=== PATIENT | male | born 1975 | race Caucasian/White ===

== ENCOUNTER 2024-07-23 08:12 | Emergency (ER) | payer BC, SELFPAY ==
[2024-07-23 08:15] VITALS: BP 131/89
[2024-07-23 09:09] VITALS: BMI 36.8
[2024-07-23 09:29] LABS: % Basophils 0.5 % (0-2); % Eosinophils 2.3 % (0-6); % Immature Granulocytes 0.3 % (0-0.5); % Lymphocytes 12.6 % (20.5-51.1); % Monocytes 10.4 % (1.7-9.3); % Neutrophils 73.9 % (42.2-75.2); Absolute Basophils 0.1 10^3/uL (0-0.2); Absolute Eosinophils 0.2 10^3/uL (0-0.7); Absolute Lymphocytes 1.2 10^3/uL (1.2-3.4); Absolute Neutrophils 6.7 10^3/uL (1.4-6.5); Hematocrit 48.4 % (39.0-52.0); Hemoglobin 16.8 g/dL (13.0-18.0); Mean Corp Hgb Conc. 34.7 g/dL (33.0-37.0); Mean Corpuscular Hgb 30.9 pg (27.0-31.0); Mean Platelet Volume 9.6 fL (7.4-10.4); Nucleated Red Blood Cells % 0 % (-); Platelet Count 252 10^3/uL (130-400); Red Blood Cell Count 5.44 10^6/uL (4.70-6.10); Red Cell Dist. Width 12.6 % (11.5-14.5); White Blood Cell Count 9.1 10^3/uL (4.8-10.8)
--- NOTE | 2024-07-23 09:36 | ED.GENMED ---
History of Present Illness
General
Chief Complaint: Chest Pain
Source: patient
Exam Limitations: none
Time Seen by Provider: 07/23/24 08:42
Nursing documentation reviewed up to this point in time: agreed with
History of Present Illness
History of Present Illness:
48-year-old male with no reported chronic medical issues who presents to the emergency department for evaluation of chest pain and bodyaches. Patient reports symptoms started about a week ago with fatigue and achiness he reports mainly in his back
and neck�'like I went to the gym but I have been to the gym in a week.' He reports that he has had mild congestion over that period of time as well. Last night he says he started to have some tightness in his chest as well and was having some mild
shortness of breath. Decided to come to the ER to be evaluated. He has not noted any cough. He has not noted any fever. He denies any nausea, vomiting, abdominal pain. No diarrhea. He denies any headache. Denies any other complaints.
Review of Systems
Review of Systems
All Other Systems: ROS reviewed and negative except as documented in HPI and ROS
Constitutional: Reports fatigue; Denies fever or chills
EENT: Reports runny nose; Denies sore throat
Respiratory: Reports trouble breathing; Denies cough
Cardiac: Reports chest pain; Denies palpitations
ABD/GI: Denies abdominal pain, nausea, vomiting or diarrhea
: Denies flank pain
Musculoskeletal: Reports neck pain and back pain
Neurological: Denies dizzy or headache
Phy Exam
Physical Exam
Physical Exam:
General: Awake, alert, oriented x3; no acute distress
Head: Normocephalic, atraumatic
Eyes: Conjunctiva normal
Throat: Airway intact, handling secretions
Neck: Trachea midline, supple without meningismus
Lungs: Clear to auscultation bilaterally, no wheezing, rales, rhonchi
Heart: Regular rate and rhythm, no murmurs, gallops, or rubs
Abd: Soft, non distended, nontender
Back: No CVA tenderness and no reproducible tenderness in the thoracic or lumbar spine or in the paraspinal region
Neuro: No gross deficit
Skin: no rash in area of concern
Extremities: No edema in extremities, equal pulses in all extremities
Scores
Heart Failure Risk
Heart Failure Risk Score: Not Applicable
Heart Score for Chest Pain Patients
STEMI patient?: No
History: Slightly or Non-Suspicious
ECG: Normal
Age: >45 - <65 years
Risk Factors: 1 or 2 Risk Factors
Troponin: </= Normal Limit
Heart Score for Chest Pain Patients: 2
Heart Score Risk: 2.5% MACE over next 6 weeks
Withdrawal Assessment of Alcohol
Withdrawal Assessment Completed?: Not applicable
Course
Orders/Labs/Results
Orders:
Orders
07/23/24 08:17
Electrocardiogram (*1) Urgent
Reason for Study: Chest Pain
EKG- Treatment ONCE
07/23/24 08:43
CR Chest - 2 Views Urgent
Comment:
Reason For Exam: chest pain
07/23/24 09:05
COVID-19 Antigen Urgent
Source: Nasal Swab
Complete Blood Count/With Diff Urgent
Comprehensive Metabolic Panel Urgent
Creatine Phosphokinase Urgent
D-Dimer Urgent
Troponin I Urgent
Influenza A+B Rapid Molecular Urgent
PHIL Source: Nasal Swab
Specimen Description:
07/23/24 09:06
Ketorolac [Toradol] 15 mg IV NOW STA
07/23/24 09:08
Add On- LAB Urgent
Tests Added?: CPK
07/23/24 09:46
CT Chest PE Study Urgent
Comment:
Reason For Exam: chest pain, sob, +dimer
0.9% Sodium Chloride 1000 ml [Nss] 1,000 ml IV BOLUS
07/23/24 11:20
Troponin I Urgent
Abnormal Lab Results
07/23/24
09:05
Absolute Neuts (auto) 6.7 H 10^3/uL
(1.4-6.5)
Absolute Monos (auto) 1.0 H 10^3/uL
(0.1-0.6)
Lymphocytes % 12.6 L %
(20.5-51.1)
Monocytes % 10.4 H %
(1.7-9.3)
D-Dimer 1.27 H ug/mlFEU
(0.00-0.50)
Glucose 120 H mg/dl
(70-99)
ALT 51 H U/L
(0-50)
Total Protein 6.0 L g/dl
(6.3-8.2)
07/23/24 09:05
07/23/24 09:05
Vital Signs
Initial and Last Documented VS:
Initial Vital Signs
Temp Pulse Resp BP Pulse Ox
37.0 C 87 16 131/89 98
07/23/24 08:15 07/23/24 08:15 07/23/24 08:15 07/23/24 08:15 07/23/24 08:15
Last Documented Vital Signs
Temp Pulse Resp BP Pulse Ox
37.0 C 78 18 138/70 98
07/23/24 08:15 07/23/24 12:05 07/23/24 12:05 07/23/24 12:05 07/23/24 12:05
MDM/Problems Addressed
Differential Diagnosis Includes:
Viral syndrome, pneumonia, PE, pericarditis, ACS, costochondritis, GERD
MDM/Problems Addressed:
48-year-old male presents for evaluation of chest pains and shortness of breath that started last night in the setting of recent generalized fatigue, myalgias, congestion. Vitals and exam as above. EKG shows no STEMI. Will place an IV send labs
including a CBC and a CMP, CPK. Check troponin. Will check a D-dimer. Will check chest x-ray. Swab for COVID and flu. Treat with Toradol. Reassess after the above.
Initial labs reviewed: CBC unremarkable, CMP no clinically significant abnormalities. Chest x-ray reviewed by me shows no acute disease. COVID swab negative. His D-dimer is positive; we will send for a CTA to rule out PE.
CTA negative for PE or any other acute pathology. His initial troponin is undetectable. Patient appears well on clinical reassessment. Repeat troponin is pending.
Repeat troponin undetectable. Vital signs have been stable throughout. Patient feeling better. Stable for discharge I wonder if this may be a viral syndrome. Follow-up with PCP as an outpatient. Spoke about return precautions all questions
answered.
*Radiology
Radiology exam reviewed: preliminary read by ED provider and radiology read reviewed
*Pulse Oximetry
Patient hypoxic: no
*EKG
Interpreted by ED Provider?: Yes
Heart Rate: 82
Rate: normal
Rhythm: sinus
[place]: normal axis
Interval: normal interval
QRS Pattern: normal QRS
Ischemia: no ischemia
*Critical Care Note
Total Time (30-74mins, 75-104mins- exclusive of procedures): Not Applicable
Data Reviewed
Source: patient and records
ED Attending Note
-
Portions of this chart may have been created with voice recognition software.� Occasional wrong word or��sound alike� substitutions may have occurred due to the inherent limitations of voice recognition software.
Discharge Plan
Departure
Patient Disposition: Home (Routine Discharge)
Date of Disposition: 07/23/24
Time of Disposition: 13:51
Patient with high blood pressure during this ER visit?: No
Discharge Problem:
Myalgia, Chest pain
Instructions: Chest Pain PCP Follow Up
Prescriptions:
No Action
clindamycin HCl 150 mg capsule
450 mg PO TID 10 Days Qty: 90 0RF
Referrals:
UNKNOWN - PT DOES,NOT KNOW [Family Provider] -
Activity Restrictions/Additional Instructions:
Thank you for visiting the Emergency Department at [facility].
1. Please schedule a follow up appointment as directed. Call first thing tomorrow morning to make an appointment.
2. If indicated, please take your medications as instructed and indicated on discharge paperwork.
3. If any of your symptoms do not improve, or persist, or become more severe within 6-12 hours, please return to the emergency department for further care.
4. Please return to the emergency department if you develop a headache, neck pain/stiffness, fever greater than 100.4F, chest pain, shortness of breath, persistent nausea, vomiting, slurred speech, difficulty walking, numbness/tingling, weakness,
signs of infection or any other symptoms that are worrisome to you.
Please call [phone] if you have any questions.
Interventions
Interventions:
*Risk Screen - Suicide Last Done: 07/23/24 09:22
*General Assessment Last Done: 07/23/24 09:22
*Neglect/Abuse Screening Last Done: 07/23/24 09:22
ED- Fall Risk Assessment Last Done: 07/23/24 09:22
*ED COVID-19 Vaccine History Last Done: 07/23/24 09:22
ED- Cardiac Assessment Last Done: 07/23/24 12:05
Discharge Date and Time
Print Language: ANGOLAN
[2024-07-23 09:37] LABS: D-Dimer 1.27 ug/mlFEU (0.00-0.50)
[2024-07-23 09:39] LABS: COVID-19 Antigen Negative (Negative)
[2024-07-23 09:45] LABS: ALT (SGPT) 51 U/L (0-50); AST (SGOT) 32 U/L (17-59); Albumin 3.7 g/dl (3.5-5.0); Alkaline Phosphatase 82 U/L (38-126); Blood Urea Nitrogen 18 mg/dl (9-20); Calcium 8.8 mg/dl (8.4-10.2); Carbon Dioxide 29 mmol/L (22-30); Chloride 103 mmol/L (98-107); Estimated Creatinine Clearance 95 ml/min; Glucose 120 mg/dl (70-99); Potassium 4.6 mmol/L (3.5-5.1); Sodium 136 mmol/L (135-145); Total Bilirubin 0.8 mg/dl (0.2-1.3); eGFR > 60.00
[2024-07-23 09:47] LABS: Troponin I < 0.012 ng/ml
[2024-07-23 10:37] LABS: Creatine Phosphokinase 109 U/L (55-170)
[2024-07-23] MEDS: NSS 1000 IV (10:42)
[2024-07-23] MEDS: TORADOL 15 MG IV (10:42)
[2024-07-23 12:03] LABS: Troponin I < 0.012 ng/ml
[2024-07-23 12:05] VITALS: BP 138/70
[2024-07-23 14:12] VITALS: BP 138/70
== END 2024-07-23 14:13 | disposition home or self-care (01) ==
LOC: EMR 08:12
PROVIDERS: EMERGENCY PHYSICIAN Emergency Medicine
DX: R07.89 Other chest pain (principal); M79.10 Myalgia, unspecified site; R79.1 Abnormal coagulation profile; Z11.52 Encounter for screening for COVID-19
CPT/HCPCS: 99285; 96374; 96361; 71046; 71275; 80053; 82550; 84484; 85025; 85379; 87502; 87811; 93005; Q9967

== ENCOUNTER 2024-07-28 18:33 | Emergency (ER) | payer BC, SELFPAY ==
[2024-07-28 18:38] VITALS: BP 160/90
[2024-07-28 19:09] LABS: % Basophils 0.5 % (0-2); % Eosinophils 1.6 % (0-6); % Immature Granulocytes 0.4 % (0-0.5); % Lymphocytes 7.5 % (20.5-51.1); % Monocytes 9.4 % (1.7-9.3); % Neutrophils 80.6 % (42.2-75.2); Absolute Basophils 0.1 10^3/uL (0-0.2); Absolute Eosinophils 0.2 10^3/uL (0-0.7); Absolute Immature Granulocytes 0.1 10^3/uL (0-0.05); Absolute Monocytes 1.3 10^3/uL (0.1-0.6); Absolute Neutrophils 10.9 10^3/uL (1.4-6.5); Hematocrit 44.7 % (39.0-52.0); Hemoglobin 15.6 g/dL (13.0-18.0); Mean Corp Hgb Conc. 34.9 g/dL (33.0-37.0); Mean Corpuscular Hgb 30.5 pg (27.0-31.0); Mean Corpuscular Volume 87.3 fL (80.0-94.0); Mean Platelet Volume 8.8 fL (7.4-10.4); Nucleated Red Blood Cells % 0 % (-); Platelet Count 277 10^3/uL (130-400); Red Blood Cell Count 5.12 10^6/uL (4.70-6.10); Red Cell Dist. Width 12.1 % (11.5-14.5); White Blood Cell Count 13.5 10^3/uL (4.8-10.8)
[2024-07-28 19:34] LABS: Troponin I < 0.012 ng/ml
[2024-07-28 19:45] LABS: ALT (SGPT) 41 U/L (0-50); AST (SGOT) 26 U/L (17-59); Albumin 3.7 g/dl (3.5-5.0); Alkaline Phosphatase 127 U/L (38-126); Blood Urea Nitrogen 17 mg/dl (9-20); Calcium 8.7 mg/dl (8.4-10.2); Carbon Dioxide 22 mmol/L (22-30); Chloride 104 mmol/L (98-107); Glucose 111 mg/dl (70-99); Potassium 4.4 mmol/L (3.5-5.1); Sodium 134 mmol/L (135-145); Total Bilirubin 1.3 mg/dl (0.2-1.3); Total Protein 6.3 g/dl (6.3-8.2); eGFR > 60.00
[2024-07-28 19:48] VITALS: BP 123/91
[2024-07-28 20:00] VITALS: BP 131/84
[2024-07-28 20:03] VITALS: BMI 37.6
--- NOTE | 2024-07-28 20:05 | EDRN ---
Pt wearing a headache cap. Pt says he was seen in [facility] ED Tuesday morning and again this morning at [facility] ED for same symptoms that bring him in tonight. This morning, pt had a negative cxr, flu/covid/rsv and urinalysis. Pt had blood work done that
showed elevated kidney function. Pt says he was discharged, told to take tylenol and eat soup. Pt has had severe headaches, chest tightness and 'feels like there is an elephant sitting on my waist line. I am burning up on the inside.' Pt has had
pressure in his bladder, says he had a bladder scan done at [facility] and it was normal. Pt cannot sleep, says he is up pacing all night long with sweats and every day he has a new symptom. Pt has chest pain with cough and feels 'I'm chasing my
breath', back of his eyes water, had nausea earlier, no vomiting. Last BM yesterday - no diarrhea. Pt had a temp of 101 at 1730 tonight and took tylenol.
[2024-07-28 20:54] VITALS: BP 154/87
[2024-07-28 21:00] VITALS: BP 147/88
[2024-07-28 21:09] LABS: Monotest Negative (Negative)
[2024-07-28 22:16] VITALS: BP 153/88
[2024-07-28] MEDS: TYLENOL 650 MG PO (22:17)
[2024-07-28] MEDS: MOTRIN 600 MG PO (22:17)
[2024-07-28] MEDS: OMNICEF 300 MG PO (22:40)
[2024-07-28 22:47] LABS: Urine Albumin 1+ (Neg - Trace); Urine Bilirubin Negative (Negative); Urine Character Clear (Clear); Urine Color Yellow; Urine Glucose Negative (Negative); Urine Ketone Negative (Negative); Urine Leukocyte Negative (Negative); Urine Nitrite Negative (Negative); Urine Occult Blood Negative (Negative); Urine Specific Gravity 1.005 (<1.030); Urine Urobilinogen Negative (Neg - 1+)
--- NOTE | 2024-07-28 22:49 | ED.GENMED ---
History of Present Illness
General
Chief Complaint: Chest Pain
Time Seen by Provider: 07/28/24 19:55
History of Present Illness
History of Present Illness:
48-year-old male presents the emergency department for evaluation of persistent fever for the past 10 days. Fevers seem to be worse at night, he reports diffuse body aches, headaches, neck and back pain as well as coughing. He was seen in this
emergency department 5 days ago for similar symptoms at which time labs were unrevealing with the exception of an elevated D-dimer and subsequent chest CT was negative for pulmonary embolism. He went to urgent care later in the week without
definitive diagnosis. He has been negative for COVID flu and RSV during that time as well. Was at [facility] this morning where labs revealed minor leukocytosis, negative urinalysis, negative COVID/flu/RSV, and a negative chest
x-ray. He is essentially at wits end at this point
Review of Systems
Review of Systems
Allergies reviewed?: Yes
All Other Systems: ROS reviewed and negative except as documented in HPI and ROS
Phy Exam
Physical Exam
Physical Exam:
GEN: Well appearing, NAD, WDWN
Eyes: PERRLA, EOMs intact, no scleral icterus
HENT: NCAT, oral mucosa moist, no JVD, positive superior posterior left cervical adenopathy
Lungs: CTAB, no wheezes, rales, rhonchi, normal chest wall excursion
Cardiac: RRR, no M/R/G, no peripheral edema. Radial pulses 2+ bilat
Abdomen: Soft, mild suprapubic tenderness, no rigidity
Neuro: AO x 3, no focal deficits to BUE/BLE, normal sensation throughout
MSK: No gross deformity or ecchymosis. No edema. No digital clubbing
Skin: No rashes, petechiae. Normal color, no pallor or jaundice.
Psych: Calm, cooperative, proper hygiene
Scores
Heart Score for Chest Pain Patients
STEMI patient?: Not applicable
Course
Orders/Labs/Results
Orders:
Orders
07/28/24 18:42
EKG [Electrocardiogram (*1)] Urgent
Reason for Study: Chest Pain
EKG- Treatment ONCE
07/28/24 19:00
Complete Blood Count/With Diff Urgent
Comprehensive Metabolic Panel Urgent
Troponin I Urgent
07/28/24 20:21
Monotest Urgent
Blood Culture Q30M
PHIL Source: Blood/Venous
Specimen Description:
07/28/24 20:49
Blood Culture Q30M
PHIL Source: Blood/Venous
Specimen Description:
07/28/24 21:11
CT Abd/Pel (IV only)-DH only Urgent
Comment:
Reason For Exam: suprapubic pain, fever
07/28/24 22:14
Acetaminophen [Tylenol] 650 mg PO NOW STA
Ibuprofen [Motrin] 600 mg PO NOW STA
07/28/24 22:34
Cefdinir [Omnicef] 300 mg PO NOW STA
07/28/24 22:41
Urinalysis Reflex To Culture Urgent
Date Specimen was Collected: 07/28/24
Time Specimen was Collected: 22:39
Urine Microscopic Reflex Cult Urgent
Urine Culture Urgent
PHIL Source: U
Specimen Description:
Date Specimen was Collected: 07/28/24
Time Specimen was Collected: 22:39
Comment: ADD ON
07/28/24 22:49
Butalb/Acetaminophen/Caffeine [Fioricet] 1 tab PO NOW STA
07/28/24 23:22
Add On - Microbiology Urgent
Tests Added?: urine culture
Abnormal Lab Results
07/28/24 07/28/24
19:00 22:41
WBC 13.5 H 10^3/uL
(4.8-10.8)
Abs Immat Gran (auto) 0.1 H 10^3/uL
(0-0.05)
Absolute Neuts (auto) 10.9 H 10^3/uL
(1.4-6.5)
Absolute Lymphs (auto) 1.0 L 10^3/uL
(1.2-3.4)
Absolute Monos (auto) 1.3 H 10^3/uL
(0.1-0.6)
Neutrophils % 80.6 H %
(42.2-75.2)
Lymphocytes % 7.5 L %
(20.5-51.1)
Monocytes % 9.4 H %
(1.7-9.3)
Sodium 134 L mmol/L
(135-145)
Creatinine 1.4 H mg/dL
(0.7-1.3)
Glucose 111 H mg/dl
(70-99)
Alkaline Phosphatase 127 H U/L
(38-126)
Urine Albumin (Reflex) 1+ A
(Neg - Trace)
07/28/24 19:00
07/28/24 19:00
Vital Signs
Initial and Last Documented VS:
Initial Vital Signs
Temp Pulse Resp BP Pulse Ox
98.6 F 89 16 160/90 96
07/28/24 18:38 07/28/24 18:38 07/28/24 18:38 07/28/24 18:38 07/28/24 18:38
Last Documented Vital Signs
Temp Pulse Resp BP Pulse Ox
100.5 F H 91 28 153/88 96
07/28/24 22:17 07/28/24 22:16 07/28/24 21:00 07/28/24 22:16 07/28/24 18:38
MDM/Problems Addressed
MDM/Problems Addressed:
No clear explanation of patient's symptoms however CT does suggest potential pyelonephritis although urinalysis is negative. Will treat with cephalosporins given the persistence of fever for the past 10 days with urine culture and blood culture
sent for completeness.
*Critical Care Note
Total Time (30-74mins, 75-104mins- exclusive of procedures): Not Applicable
ED Attending Note
-
Portions of this chart may have been created with voice recognition software.� Occasional wrong word or��sound alike� substitutions may have occurred due to the inherent limitations of voice recognition software.
Discharge Plan
Departure
Patient Disposition: Home (Routine Discharge)
Date of Disposition: 07/28/24
Time of Disposition: 22:49
Patient with high blood pressure during this ER visit?: No
Discharge Problem:
Fever, Acute pyelonephritis
Instructions: Urinary tract infection - Discharge instructions
Prescriptions:
New
cefdinir 300 mg capsule
300 mg PO BID Qty: 19 0RF
[id number] [Fioricet] 50-300-40 mg capsule
1 cap PO Q8H PRN (Reason: headache) Qty: 10 0RF
No Action
Ptsd Medication
1 tab PO DAILY
Patient Comments:
pt does not remember the name of it or dosage
Testosterone Cream
1 applic topical BID
Referrals:
NONE,* [Family Provider] -
Interventions
Interventions:
*Risk Screen - Suicide Last Done: 07/28/24 18:38
*General Assessment Last Done: 07/28/24 20:03
*Neglect/Abuse Screening Last Done: 07/28/24 18:38
*ED COVID-19 Vaccine History Last Done: 07/28/24 20:03
*Nursing Disposition Last Done: 07/28/24 23:21
ED- Cardiac Assessment Last Done: 07/28/24 20:03
Discharge Date and Time
Discharge Date/Time: 07/28/24 23:21
Print Language: MARSHALLESE
[2024-07-28 22:53] LABS: Urine Squamous Cell 0-2 /LPF (Few)
[2024-07-28] MEDS: FIORICET 1 TAB PO (22:53)
[2024-07-28 22:54] LABS: Urine Red Blood Cell 0-2 /HPF (0-2); Urine White Cell 0-2 /HPF (0-5)
== END 2024-07-28 23:21 | disposition home or self-care (01) ==
LOC: EMR 18:33
PROVIDERS: Physician Assistant; EMERGENCY PHYSICIAN Emergency Medicine
DX: R50.9 Fever, unspecified (principal); N10 Acute pyelonephritis
CPT/HCPCS: 99284; 74177; 80053; 81003; 81015; 84484; 85025; 86308; 87040; 87086; 87205; 93005; Q9967

== ENCOUNTER 2024-07-30 04:03 | Inpatient (IN) | payer BC, SELFPAY ==
[2024-07-29 23:08] VITALS: BP 158/88
--- NOTE | 2024-07-29 23:58 | ED.GENMED ---
History of Present Illness
General
Chief Complaint: Male Genito-Urinary Symptoms
Source: patient, spouse, previous radiology exam (Unremarkable CT of the chest/PE study July 23. CT abdomen pelvis yesterday showing mild bilateral perinephric stranding otherwise unremarkable) and previous hospital records (Recent ED visit
yesterday as well as July 23.)
Exam Limitations: none
Time Seen by Provider: 07/29/24 23:29
Nursing documentation reviewed up to this point in time: agreed with
History of Present Illness
History of Present Illness:
This is a 48-year-old gentleman who has no significant past medical history save for PTSD, low T. This is his third visit to the ED here with complaints of 10 to 14-day history of generalized aches, fatigue, myalgias, fever, headache.
Initial presentation July 23, was afebrile at that time but admittedly had been taking Tylenol and ibuprofen on a regular basis. Labs are unremarkable save for mildly elevated D-dimer, CT of the chest/PE study performed which was unremarkable.
Diagnosed with viral syndrome.
Since that visit he presented to urgent care with ongoing similar symptoms as well as [facility] ED yesterday morning and this ED yesterday evening. He has had negative COVID, flu, RSV testing. Negative urinalysis at [facility]
and again yesterday evening. Negative chest x-ray. Mild leukocytosis noted at [facility] yesterday and again yesterday evening.
He has noted some suprapubic discomfort, burning sensation without dysuria nor urgency. CT of the abdomen pelvis with IV contrast performed yesterday evening showed mild bilateral perinephric stranding, otherwise unremarkable.
Was started on cefdinir for possible pyelonephritis. Urine culture from yesterday is pending. Blood cultures from yesterday thus far negative.
Patient admits that he feels moderately improved in the morning and throughout the day but with return of fever in the evening hours he has return of significant myalgias, significant low back pain, headache and tonight he developed bilateral
testicular pain, swelling. He states he feels like 'his testicles are on fire.'
He has not noticed a rash.
No close contacts with similar symptoms.
No history of similar episodes in the past.
His last dose of Tylenol was 5 PM today.
His daily medications include Wellbutrin, topical testosterone cream
Past History
Past History
ED Past Medical History: Psychiatric (PTSD) and Other (Low testosterone)
Phy Exam
Physical Exam
Physical Exam:
GENERAL: 48-year-old gentleman appears his stated age, awake and alert, moderately ill in appearance. Wearing dark sunglasses. Resistant to reposition due to generalized aches, low back pain.
EYE: pupils equal and reactive. anicteric
NECK: Supple, nontender, no meningismus, no significant adenopathy. Full range of motion without difficulty nor pain.
ENT: posterior pharynx is clear, oral mucosa is moist. TM clear b/l, nares patent.
CARDIAC: Regular rhythm, mildly tachycardic. no murmur. No rub.
LUNGS: Clear breath sounds bilaterally, no acute respiratory distress, no wheezes/rales/rhonchi
ABDOMEN: Soft, nondistended, without focal tenderness, no r/g, no cvat. normoactive BS. Rectal exam reveals scant soft stool that is heme-negative, no appreciable rectal tenderness, no appreciable prostate tenderness.
: There is moderate global scrotal erythema with mild scrotal edema and moderate generalized scrotal tenderness to palpation. Testes are symmetric bilaterally, mild tenderness to palpation.
BACK: No midline bony tenderness. Mild to moderate bilateral paralumbar tenderness to palpation.
NEUROLOGICAL: Alert and oriented x3, no focal neuro deficits.
SKIN: Significantly hot to touch and dry, somewhat flushed in color, skin intact. Moderate global scrotal erythema. Otherwise no appreciable rashes.
MUSCULOSKELETAL: No C/C/E. peripheral pulses are full and equal b/l. No palpable joint tenderness nor joint effusions.
PSYCH: Normal and appropriate interaction.
Sepsis
Sepsis Screening
Sepsis Assessment: Sepsis Ruled Out
Sepsis Screen
Sepsis Screen: Sepsis Ruled Out
Date: 07/30/24
Time: 02:00
Course
Orders/Labs/Results
Orders:
Orders
07/29/24 23:41
CRP [C-Reactive Protein] Urgent
Complete Blood Count/With Diff Urgent
Comprehensive Metabolic Panel Urgent
Sed Rate [Erythrocyte Sed Rate] Urgent
07/29/24 23:45
Lactic Acid Q4H
Comment: CANCEL 2nd LACTIC ACID IF 1st LACTIC ACID IS LESS THAN 2
07/29/24 23:56
Blood Culture Q30M
PHIL Source: Blood/Venous
Specimen Description:
US Scrotum Urgent
Comment:
Reason For Exam: fever, b/l testicular pain
07/29/24 23:57
0.9% Sodium Chloride 1000 ml [Nss] 1,000 ml IV BOLUS
Acetaminophen 1000MG/100Ml [Ofirmev] 1,000 mg in 100 ml IV ONCE
Acetaminophen IV Indication:: Targeted Temp Management
07/30/24 00:27
Blood Culture Q30M
PHIL Source: Blood/Venous
Specimen Description:
07/30/24 03:38
CefTRIAXone [Rocephin] 2,000 mg IV NOW STA
07/30/24 03:39
Admit/Transfer Patient As Directed
Co-Sign Provider:
Level of Care: Inpatient admission
Assign to:: Medical/Surgical
Physician / Group: [facility]
Diagnosis: Fever, Pyelonephritis
Reason for Hospitalization: Fever, Pyelonephritis
Expected length of stay greater than two midnights?: Yes
ELOS- Estimated Length of Stay in days: 2
I certify the patient meets the requirements for IP care: Yes
PRN Pain Medication Management As Directed
May give lesser potent ordered pain med per pt: Yes
preference::
Protocol:: Medication orders for pain may be administered in a
manner that supports deferring to patient preference
when the pt is:
- Requesting an ordered lesser potent pain medication.
Least to most potent pain medications are defined
as: acetaminophen < NSAID < tramadol < opioids
(morphine, oxycodone, hydromorphone).
- Requesting a lesser dose of the same medication IF
ORDERED.
- Requesting a less intrusive route of administration
if both routes are prescribed by the provider (PO <
IV).
07/30/24 03:41
Code Status As Directed
Resuscitation Status: Full Code
07/30/24 04:02
Sterile Water [Sterile Water For Injection] 20 ml IV NOW STA
07/30/24 04:05
CPK [Creatine Phosphokinase] Urgent
07/30/24 04:48
Acetaminophen [Tylenol] 650 mg PO Q4HPRN PRN
07/30/24 04:48
Consult Notification Routine
Specialty to Notify: Infectious Disease
INFECTIOUS DISEASE CONSULT Routine
Consulting Provider: Kelly García
Was physician already notified: No
Reason for consult: Fever, ? Pyelo
Activity As Directed
Activity Level: Ambulate
Bladder Scan As Directed
Follow Bladder Retention/Intermittent Cath Algorithm?: Yes
PRN if no void in __ hours: 6
Frequency: Per Retention Algorithm
If Bladder Scan Result >: 400
then:: Straight cath
I/O [Intake/ Output] As Directed
Frequency: Per unit guidelines
Pneumatic Compression Sleeves As Directed
Type: Knee high
Straight Cath As Directed
Frequency: Per Retention Algorithm
Additional Instructions: straight cath as needed per acute urinary retention algorithm for 24 hrs
Additional Instructions: for bladder scan greater than 400 mL
Vital Signs As Directed
Frequency: Per unit guidelines
Weight As Directed
Frequency: Daily
Oxygen Therapy [O2 Therapy] [RESP] Routine
Titrate/Wean O2 to maintain O2 sat greater than (%): 94
DX Deep Vein Thrombosis Video Routine
07/30/24 05:22
Basic Metabolic Panel IN AM
Complete Blood Count/No Diff IN AM
Mumps Virus IgM [S] Routine
PSA, Total - Screen Routine
07/30/24 05:30
Lactated Ringers [Lr] 1,000 ml IV 150 mls/hr
07/30/24 Breakfast
Regular
At Your Request: Full Participation
07/30/24 06:03
Urinalysis Reflex To Culture Urgent
Date Specimen was Collected: 07/30/24
Time Specimen was Collected: 05:57
07/30/24 18:00
Enoxaparin Sodium [Lovenox] 40 mg SC QPM
07/31/24 04:00
CefTRIAXone [Rocephin] 2,000 mg IV Q24H
Abnormal Lab Results
07/30/24
00:23
WBC 12.7 H 10^3/uL
(4.8-10.8)
Abs Immat Gran (auto) 0.1 H 10^3/uL
(0-0.05)
Absolute Neuts (auto) 10.2 H 10^3/uL
(1.4-6.5)
Absolute Lymphs (auto) 0.9 L 10^3/uL
(1.2-3.4)
Absolute Monos (auto) 1.1 H 10^3/uL
(0.1-0.6)
Immature Gran % 0.6 H %
(0-0.5)
Neutrophils % 80.8 H %
(42.2-75.2)
Lymphocytes % 7.4 L %
(20.5-51.1)
ESR 75 H mm/hour
(0-20)
Sodium 134 L mmol/L
(135-145)
Creatinine 1.7 H mg/dL
(0.7-1.3)
Glucose 133 H mg/dl
(70-99)
Alkaline Phosphatase 156 H U/L
(38-126)
C-Reactive Protein 167.80 H mg/L
(0.0-10.00)
Total Protein 6.2 L g/dl
(6.3-8.2)
07/30/24 00:23
07/30/24 00:23
Vital Signs
Initial and Last Documented VS:
Initial Vital Signs
Temp Pulse Resp BP Pulse Ox
99.9 F 102 28 158/88 94
07/29/24 23:08 07/29/24 23:08 07/29/24 23:08 07/29/24 23:08 07/29/24 23:08
Last Documented Vital Signs
Temp Pulse Resp BP Pulse Ox
99.7 F 102 28 138/75 95
07/30/24 06:15 07/29/24 23:08 07/29/24 23:08 07/30/24 06:02 07/30/24 06:03
MDM/Problems Addressed
Differential Diagnosis Includes:
Patient presents with ongoing febrile illness, most pronounced in the evening hours associated with significant generalized myalgias, headache, fatigue and tonight notes bilateral testicular pain, redness, swelling.
Was started on cefdinir yesterday for possible pyelonephritis however urinalysis yesterday was unremarkable and reportedly unremarkable urinalysis yesterday morning at [facility].
I am not convinced that fever is related to pyelonephritis.
I am concerned for possible epididymitis, orchitis, prostatitis. Other consideration is viral syndrome. He has had moderate headache, moderate low back pain with mild neck pain without stiffness and symptoms are markedly improved with resolution
of fever.
Not convincing for meningitis/encephalitis.
CAT scan notable for mild DJD of the lumbar spine, no history of chronic back pain and again lower back pain improves with resolution of fever. Discitis is a consideration but no significant risk factors, no history of IV drug use, etc.
Blood cultures from yesterday thus far negative.
Will repeat labs including blood cultures, will check inflammatory markers, lactic acid. Will check scrotal ultrasound.
Will initiate IV fluids and given IV dose of Tylenol.
*Radiology
Radiology exam reviewed: radiology read reviewed (Scrotal ultrasound shows no orchitis or epididymitis. Trace bilateral hydroceles with mild diffuse scrotal wall edema)
*Pulse Oximetry
Patient hypoxic: no
*Critical Care Note
Total Time (30-74mins, 75-104mins- exclusive of procedures): Not Applicable
Update Note
Update Note:
02:05
Fevers dissipating and patient is less flushed in appearance, much more comfortable but continues with significant global scrotal erythema and pain.
Labs again reveal mildly elevated white blood cell count of 12.7, mildly improved from yesterday.
Creatinine continues to trend up from 1.21-week ago, 1.4 yesterday, now 1.7.
Inflammatory markers significantly elevated.
Lactic acid is normal.
He remains hemodynamically stable.
Scrotal ultrasound shows no evidence of orchitis nor epididymitis but does note mild diffuse scrotal wall edema. This could certainly reflect scrotal cellulitis but patient began with febrile illness and generalized myalgias at least 10 days ago.
Scrotal erythema and pain began today.
Will admit to hospitalist service for further evaluation of fever of unknown origin. Concern for potential scrotal cellulitis.
ED Attending Note
-
Portions of this chart may have been created with voice recognition software.� Occasional wrong word or��sound alike� substitutions may have occurred due to the inherent limitations of voice recognition software.
Discharge Plan
Departure
Patient Disposition: Admit
Date of Disposition: 07/30/24
Time of Disposition: 02:16
Admit to doctor: [facility]
Presentation/result/management discussed w/ accepting MD/DO: Hospitalist
Discharge Problem:
Acute febrile illness, Acute pyelonephritis, Acute kidney injury, Cellulitis of scrotum
Interventions
Interventions:
*Risk Screen - Suicide Last Done: 07/29/24 23:08
*General Assessment Last Done: 07/29/24 23:26
*Neglect/Abuse Screening Last Done: 07/29/24 23:08
ED- Fall Risk Assessment Last Done: 07/30/24 00:25
*ED COVID-19 Vaccine History Last Done: 07/29/24 23:26
ED-Male Genitourinary Assessment Last Done: 07/30/24 00:25
[2024-07-30] VITALS (20 sets, daily range): BP systolic 86–153; BP diastolic 63–89; BMI 37.3
[2024-07-30] MEDS: OFIRMEV 100 IV ×2 (00:31→16:30)
[2024-07-30] MEDS: NSS 1000 IV (00:31)
[2024-07-30 00:40] LABS: % Basophils 0.5 % (0-2); % Eosinophils 1.7 % (0-6); % Immature Granulocytes 0.6 % (0-0.5); % Lymphocytes 7.4 % (20.5-51.1); % Neutrophils 80.8 % (42.2-75.2); Absolute Basophils 0.1 10^3/uL (0-0.2); Absolute Eosinophils 0.2 10^3/uL (0-0.7); Absolute Immature Granulocytes 0.1 10^3/uL (0-0.05); Absolute Lymphocytes 0.9 10^3/uL (1.2-3.4); Absolute Monocytes 1.1 10^3/uL (0.1-0.6); Absolute Neutrophils 10.2 10^3/uL (1.4-6.5); Hematocrit 43.4 % (39.0-52.0); Hemoglobin 15.1 g/dL (13.0-18.0); Mean Corp Hgb Conc. 34.8 g/dL (33.0-37.0); Mean Corpuscular Hgb 30.9 pg (27.0-31.0); Mean Corpuscular Volume 88.9 fL (80.0-94.0); Nucleated Red Blood Cells % 0 % (-); Platelet Count 296 10^3/uL (130-400); Red Blood Cell Count 4.88 10^6/uL (4.70-6.10); White Blood Cell Count 12.7 10^3/uL (4.8-10.8)
[2024-07-30 00:47] LABS: Lactic Acid 1.2 mmol/L (0.7-2.0)
[2024-07-30 01:17] LABS: ALT (SGPT) 39 U/L (0-50); AST (SGOT) 32 U/L (17-59); Albumin 3.6 g/dl (3.5-5.0); Alkaline Phosphatase 156 U/L (38-126); Blood Urea Nitrogen 19 mg/dl (9-20); Carbon Dioxide 24 mmol/L (22-30); Chloride 101 mmol/L (98-107); Estimated Creatinine Clearance 66 ml/min; Glucose 133 mg/dl (70-99); Potassium 3.9 mmol/L (3.5-5.1); Sodium 134 mmol/L (135-145); Total Bilirubin 0.8 mg/dl (0.2-1.3); Total Protein 6.2 g/dl (6.3-8.2); eGFR 49.73
[2024-07-30 01:22] LABS: Erythrocyte Sed Rate 75 mm/hour (0-20)
--- NOTE | 2024-07-30 03:45 | HPS.HSE ---
Family Physician
-
Family Physician: INTER[facility]IEWE UNKNOWN - PT NOT
Chief Complaint
-
Fever, Myalgias
History of Present Illness
Patient is a 48y M with PMH significant for PTSD who presents to ED complaining of back pain, headache, myalgias and urinary symptoms. Patient states that his symptoms initially started one week ago with severe back pain. He states that he had
difficulty standing due to back discomfort. He had associated neck pain and fever. He was seen in the ED here (07/23) and evaluation was largely unremarkable. He was discharged to home with instructions for supportive care for presumed viral
syndrome. The following day he presented to [facility] with similar symptoms. No new findings were noted / source discovered.
He was at [facility] ED Tuesday AM and in ED again on Tuesday PM. Evaluations remained largely unremarkable.
In the ED here on Tuesday, CT A/P was done. This showed some mild perinephric stranding and patient was started on oral cefdinir for possible urinary infection.
Today he returns to the ED with persistent / worsening symptoms.
He complains of a throbbing headache. He has back pain / flank pain - R > L. He complains of urinary frequency / urgency. He complains of new scrotal swelling, redness and sensitivity today.
No GI symptoms. No cough / dyspnea / chest pain / etc.
His daughter had confirmed influenza about one week ago.
No other known sick contacts.
No recent travel.
Patient was in the and received myriad vaccinations.
He was taking Zepbound for weight loss - but has not taken this in > 2 months.
Medical History
Past Medical History
Past Medical History: Reports Other
Additional Past Medical History:
PTSD
Hypogonadism
Past Surgical History: Reports None
Social History
Tobacco: Smoker (Occasional pipe / cigar. No cigarettes.)
Alcohol: None
Drug: None
Family History
Family History: Other (Mother: Unknown Malignancy MGM: Breast Cancer)
Allergies / Home Medications
Allergies reflects when Allergies were last updated in [employer].
Home Medications with original date entered in [employer]
Allergy/Medication List:
Allergies
Allergy/AdvReac Type Severity Reaction Status Date / Time
amoxicillin Allergy Shortness Verified 07/29/24 23:11
of Breath
Penicillins Allergy Unknown Verified 07/29/24 23:11
Home Medications
Testosterone Cream 1 applic topical BID 07/28/24
venlafaxine - unknown dose 07/30/24
Review of Systems
-
History Source: Patient
A 12 point ROS was completed and negative except as noted: Yes
Constitutional: Reports Fever, Fatigue and Chills
EENT: Denies Sore Throat or Runny Nose
Respiratory: Denies Cough or Trouble Breathing
Cardiac: Denies Chest Pain, Palpitations or Syncope
Abdomen/GI: Denies Abdominal Pain, Nausea, Vomiting, Diarrhea, Constipated, Bloody Stools or Black Stools
: Reports Frequency, Flank Pain and Urgency; Denies Dysuria or Bleeding
Musculoskeletal: Reports Muscle Pain; Denies Joint Pain or Edema
Neurological: Reports Headache; Denies Dizzy
Psych: Denies Depression or Anxiety
Physical Exam
Vital Signs
Vital Signs
Temp Pulse Resp BP Pulse Ox
99.9 F 102 28 127/63 94
07/29/24 23:08 07/29/24 23:08 07/29/24 23:08 07/30/24 02:15 07/30/24 02:16
Physical Exam
General: Other (48y M in no acute distress.)
HEENT: Moist mucous membranes, PERRLA and Other (Neck supple. No adenopathy. No parotid tenderness.)
Respiratory: Clear; No Wheezes, Rales or Rhonchi
Cardiac: S1/S2 and Regular Rhythm; No Murmur
GI: Soft, Non Distended, Normal Bowel Sounds and Other (Mildly / diffusely tender. No rebound / guarding. Pos BS. Mild erythema of the scrotum. No significant edema / induration. Mild epididymal fullness. Pos tenderness b/l.)
Genito-urinary: Other (R CVAT. Pos suprapubic tenderness.)
Musculoskeletal: No Clubbing, No Cyanosis and No Edema
Neuro: AO x 3
Laboratory Results
-
07/30/24 00:23
07/30/24 00:23
Laboratory Results
Lactic Acid Cancelled 07/30/24 04:30
Total Bilirubin 0.8 mg/dl (0.2-1.3) 07/30/24 00:23
AST 32 U/L (17-59) 07/30/24 00:23
ALT 39 U/L (0-50) 07/30/24 00:23
Alkaline Phosphatase 156 U/L (38-126) H 07/30/24 00:23
Impression/Plan
-
A/P: Patient is a 48y M with no significant PMH who presents to ED for evaluation of ongoing febrile illness.
Febrile Illness
Possible Pyelonephritis
- Admit for further evaluation and treatment.
- At present, most likely source appears to be based on pos symptoms, CT findings, etc.
- UA done initially on 07/28 was unremarkable - culture still noted as 'pending'.
- Blood cultures 07/28 are negative to date. CXR (07/23) suggested viral process.
- CT A/P (07/28) showed bilateral perinephric stranding. No pyelo, stone, obstruction, etc.
- Continue abx with IV ceftriaxone for now.
- Follow-up remaining culture data. Repeat urine studies.
- ID evaluation for additional recommendations.
- Check PSA - though prostate not exquisitely tender on exam.
- ? LP if no alternate source noted and fevers / headache persist.
- Supportive care with IVFs, antipyretics, pain control, etc.
EDDIE
- SCr = 1.7 compared to prior baseline of 1.2.
- ? due to acute illness versus recent NSAID use for pain / fever control, etc.
- Avoid further NSAIDs for now.
- IVF support as noted above.
- Follow for improvement in renal function.
DVT Prophylaxis: Lovenox
Code Status: Full
[2024-07-30] MEDS: ROCEPHIN 2000 MG IV (04:01)
[2024-07-30] MEDS: STERILE WATER FOR INJECTION 20 ML IV (04:09)
[2024-07-30 04:35] LABS: Creatine Phosphokinase 69 U/L (55-170)
[2024-07-30] MEDS: FLUSH (NSS) 1 FLUSH IV (05:31)
[2024-07-30] MEDS: LR 1000 IV ×3 (05:31→17:56)
[2024-07-30 05:37] LABS: Hematocrit 39.9 % (39.0-52.0); Hemoglobin 13.6 g/dL (13.0-18.0); Mean Corp Hgb Conc. 34.1 g/dL (33.0-37.0); Mean Corpuscular Hgb 30.6 pg (27.0-31.0); Mean Corpuscular Volume 89.7 fL (80.0-94.0); Mean Platelet Volume 9.1 fL (7.4-10.4); Platelet Count 277 10^3/uL (130-400); Red Blood Cell Count 4.45 10^6/uL (4.70-6.10); White Blood Cell Count 11.3 10^3/uL (4.8-10.8)
[2024-07-30] MEDS: TYLENOL 650 MG PO ×3 (06:13→20:41)
[2024-07-30 06:22] LABS: Blood Urea Nitrogen 16 mg/dl (9-20); Calcium 8.4 mg/dl (8.4-10.2); Carbon Dioxide 24 mmol/L (22-30); Chloride 104 mmol/L (98-107); Estimated Creatinine Clearance 70 ml/min; Glucose 128 mg/dl (70-99); Potassium 4.2 mmol/L (3.5-5.1); Sodium 135 mmol/L (135-145); eGFR 53.48
[2024-07-30 06:28] LABS: Urine Albumin 1+ (Neg - Trace); Urine Bilirubin Negative (Negative); Urine Character Clear (Clear); Urine Color Yellow; Urine Glucose Negative (Negative); Urine Ketone Negative (Negative); Urine Leukocyte Negative (Negative); Urine Nitrite Negative (Negative); Urine Occult Blood Negative (Negative); Urine Urobilinogen 1+ (Neg - 1+); Urine pH 6.5 (5.0-9.0)
[2024-07-30 06:29] LABS: PSA, Total - Screen 0.73 ng/ml (0.0-4.0)
[2024-07-30 07:59] LABS: Urine Amorphous Seen
[2024-07-30 08:00] LABS: Urine Red Blood Cell 0-2 /HPF (0-2); Urine White Cell 0-2 /HPF (0-5)
--- NOTE | 2024-07-30 08:58 | W.PN.HOSP.TC ---
Today's Communication/Plan
-
CT of the head, LP, IV antibiotics. ID eval
Assessment / Plan
Assessment / Plan
Physical exam:
General: Well Developed, Well Nourished and No Apparent Distress
HEENT: Normocephalic, Atraumatic and Moist Mucous Membranes
Respiratory: Clear to Auscultation; Negative Wheezes, Rales or Rhonchi
Cardiac: Regular Rhythm and S1/S2
GI: Soft, Nontender and Nondistended
Musculoskeletal: No Clubbing, No Cyanosis and No Edema
Neuro: Awake, Alert and Oriented
Psych: Calm
A/P:
Headache photophobia myalgias and fevers, unclear etiology-rule out infectious versus autoimmune process:
Reasonable to rule out meningoencephalitis
Continue IV Rocephin
Will do CT of the head with contrast (risk of contrast-induced nephropathy although renal function improving)
Check autoimmune serology
Possible LP by IR
ID consult-discussed with ID
Positive blood cultures:
Contaminant versus real pathogen (likely the former)
EDDIE:
Continue IV fluid
Avoid nephrotoxic
Bladder scan
DVT prophylaxis:
Lovenox SQ
CODE STATUS:
Full code
Anticipated Discharge: 24 - 48 hours
Subjective/Interval History
-
Date of Service: July 30, 2024
Patient still having generalized malaise and headache.
Objective Data
-
Labs:
Laboratory Results
07/30/24 07/30/24
00:23 05:22
WBC 12.7 H 11.3 H
Hgb 15.1 13.6
Hct 43.4 39.9
Plt Count 296 277
Sodium 134 L 135
Potassium 3.9 4.2
Chloride 101 104
Carbon Dioxide 24 24
BUN 19 16
Creatinine 1.7 H 1.6 H
Glucose 133 H 128 H
Calcium 9.0 8.4
Total Bilirubin 0.8
AST 32
ALT 39
Alkaline Phosphatase 156 H
Vital Signs:
Vital Signs
Temp Pulse Resp BP Pulse Ox
100.3 F 102 28 138/75 95
07/30/24 07:44 07/29/24 23:08 07/29/24 23:08 07/30/24 06:02 07/30/24 06:03
--- NOTE | 2024-07-30 11:59 | CON.ID ---
Consultation
-
Date/Time Consultation Requested: 08/03/2024 0448
Date/Time Consultation Performed: 07/30/2024 1055
Requesting Provider: Dr. Lombardo
Performing Provider: Dr. Barrett
Reason for Consultation: Fever
Chief Complaint / Past History
History of Present Illness
Nelson Lepe is a 48-year-old male being evaluated at the request of Dr. Spence in regards to fever. History is obtained from chart review, along with patient interview. Additional history was obtained from the patient's who was at the bedside.
Patient has a significant past medical history only for PTSD and low testosterone (on replacement therapy). He reports he was in his usual state of health up until 07/23/2024 when he presented to the ER [facility] for fever. At that point
in time, the ER notes that he presented for chest pain and generalized bodyaches. According to notes symptoms had started about a week prior with fatigue and generalized bodyaches. He admitted to some mild congestion, and the night before
presentation he had some chest tightness. ER evaluation was unrevealing, and the patient was discharged to home.
The patient reports that on Tuesday (07/24) he presented to an urgent care with fever, neck discomfort, ongoing back discomfort, and now with headache. He states that they diagnosed him with 'dehydration' and no prescriptions were given.
He reports that from Tuesday to Tuesday (07/27) he was at home, but on 07/28 he presented to [facility], where workup included a chest x-ray, which was found to be negative. He was discharged, but presented back to the emergency
room. [facility] that evening. Workup revealed a low-grade leukocytosis, and notes indicate potential kidney infection. He was prescribed cefdinir and discharged home. He presented back to the [facility] ER last evening secondary
to ongoing fatigue, myalgias and headache.
At the present time he notes ongoing headache, with associated photophobia. He denies any neck stiffness although there is some discomfort with movement. He denies any cough. He denies any abdominal pain. He admits to some low back discomfort
that has been ongoing. He denies any dysuria, but does have urgency. This appears to be variable and described differently and other notes.
He denies any recent dental work. He denies any recent travel.
Past History
Additional Past Medical History:
PTSD
Low testosterone
Past Surgical History: None
Allergy History:
amoxicillin Allergy (Verified 07/29/24 23:11)
Shortness of Breath
Penicillins Allergy (Verified 07/29/24 23:11)
Unknown
Medications Reviewed: Yes
Current Antibiotics:
Ceftriaxone 2 g IV every 24 hours
Social History
Tobacco: Former Smoker
Alcohol: None
Drug: None
Personal:
Living: With Family
Employment: Employed (Manager [employer])
Family History
Family History: Not Pertinent
Review of Systems
Vital Signs
Temp Pulse Resp BP Pulse Ox
100.3 F 102 28 131/84 94
07/30/24 07:44 07/29/24 23:08 07/29/24 23:08 07/30/24 10:00 07/30/24 07:38
Physical Exam
Physical Exam
Constitutional: Well Developed, Acutely Ill and Non-toxic
Head: Normocephalic
Eyes: Pupils Equal, Pupils Round, No Conjunctival Hemorrhage, Sclera Anicteric and Other (EOMI / PERRLA)
Pharynx: Benign
Oral: No Thrush
Cardiovascular: Regular Rate and S1/S2; Negative S3/S4 or Murmur
Pulmonary: Clear; Negative Wheezes, Rales or Rhonchi
Gastrointestinal: Soft, Non Tender, Non Distended, Normal Bowel Sounds, No Rebound and No Guarding
Extremities: Negative Edema, Cyanosis, Erythema, Splinter Hemorrhage, Venous Insufficiency or Janeway Lesions
Musculoskeletal: Negative Joint Swelling or Joint Effusion
Skin: Warm and Dry; Negative Rash or Jaundice
Neurological: Awake, Alert and Oriented
Psychological: Calm
.
Lab / Diagnostic Study Results
07/30/24 05:22
07/30/24 05:22
Abs Immat Gran (auto) 0.1 10^3/uL (0-0.05) H 07/30/24 00:23
Absolute Neuts (auto) 10.2 10^3/uL (1.4-6.5) H 07/30/24 00:23
Absolute Lymphs (auto) 0.9 10^3/uL (1.2-3.4) L 07/30/24 00:23
Absolute Monos (auto) 1.1 10^3/uL (0.1-0.6) H 07/30/24 00:23
Absolute Basos (auto) 0.1 10^3/uL (0-0.2) 07/30/24 00:23
Immature Gran % 0.6 % (0-0.5) H 07/30/24 00:23
Neutrophils % 80.8 % (42.2-75.2) H 07/30/24 00:23
Lymphocytes % 7.4 % (20.5-51.1) L 07/30/24 00:23
Monocytes % 9.0 % (1.7-9.3) 07/30/24 00:23
Eosinophils % 1.7 % (0-6) 07/30/24 00:23
Basophils % 0.5 % (0-2) 07/30/24 00:23
ESR 75 mm/hour (0-20) H 07/30/24 00:23
Lactic Acid Cancelled 07/30/24 04:30
C-Reactive Protein 167.80 mg/L (0.0-10.00) H 07/30/24 00:23
Ur Squamous Epith Cells 3-5 /LPF (Few) 07/30/24 06:03
Microbiology Results
Micro:
07/30/24 00:27 Blood Culture - Pending
Blood/Venous
07/30/24 00:23 Blood Culture - Pending
Blood/Venous
Blood Culture Preliminary 07/28/24-2020
Positive culture in progress
Gram Stain-blood Preliminary 07/30/24-1042
Gram stain of aerobic blood culture bottle reveals
Gram Positive Cocci in clusters
Imaging:
07/29/2024 Ultrasound scrotum: No evidence of testicular torsion, orchitis/epididymitis or testicular mass. There is mild scrotal skin edema of unknown etiology. Please see full dictation for additional detail.
07/28/2024 CT abdomen/pelvis with IV contrast: There is mild perinephric stranding on each side. 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 Appendix is of normal appearance. Please see full dictation for
additional detail.
07/23/2024 CT chest (PE study): No evidence of pulmonary embolism. No significant acute abnormality identified in the chest. There is mild coronary artery calcifications. Please see full dictation for additional detail.
Assessment / Plan
Headache
Photophobia
Myalgias
Fever
Leukocytosis
EDDIE
Elevated ESR
Elevated CRP
PTSD
Low testosterone
Recommendations:
At present, constellation of symptomatology is somewhat nebulous, and does not immediately suggest a specific diagnosis. I am concerned about the photophobia, along with the headache and fevers, though.
Will check CT of head, and then proceed with lumbar puncture. Order has been placed for CSF glucose, protein, cell count with differential, PCR meningitis panel, cryptococcal antigen)
Positive blood cultures are noted, although not clear whether this is a contaminant (given GPC's out of only 1 bottle of 4), or real.
Repeat blood cultures are pending.
Continue with ceftriaxone for the present.
Monitor white count and temperature curve.
Further recommendations as additional data is returned.
Care Review
Plan reviewed with: Physician (Hospitalist)
.

Total time spent today was 75 minutes, which includes preparation for the visit, gathering pertinent data, patient interview and examination, reviewing pertinent studies including laboratory evaluations, microbiology, radiology, hospital records,
specialist consultation, along with counseling and coordination of care.
[2024-07-30 13:06] LABS: Estimated Creatinine Clearance 80 ml/min
[2024-07-30 16:53] LABS: CSF Clarity Clear; CSF Color Colorless; CSF Tube # 1
[2024-07-30 16:54] LABS: Red Cell Count/CSF 2 mm^3
[2024-07-30 16:55] LABS: CSF Color Colorless; CSF Tube # 4; CSF Tube # Clarity Clear; Red Cell Count/CSF 1 mm^3; White Cell Count/CSF 86 mm^3 (0-5)
[2024-07-30 16:56] LABS: White Blood Cell Count/CSF 83 mm^3 (0-5)
[2024-07-30] MEDS: LOVENOX 40 MG SC (17:56)
[2024-07-30 18:54] LABS: Spinal Fluid Granulocytes 5 %; Spinal Fluid Lymphocytes 81 %; Spinal Fluid Macrophages 14 %
[2024-07-30 18:56] LABS: CSF Granulocytes 3 %; CSF Lymphocytes 90 %; Spinal Fluid Macrophages 7 %
[2024-07-30 20:22] LABS: Spinal Fluid Glucose 73 mg/dl (40-70); Spinal Fluid Protein 74 mg/dl (12-60)
[2024-07-30] MEDS: COMPAZINE 5 MG IV (23:21)
[2024-07-31] MEDS: LR 1000 IV ×3 (00:36→17:37)
[2024-07-31] MEDS: STERILE WATER FOR INJECTION 20 ML IV (04:28)
[2024-07-31] MEDS: ROCEPHIN 2000 MG IV (04:28)
[2024-07-31] MEDS: FLUSH (NSS) 1 FLUSH IV ×2 (04:29→04:33)
[2024-07-31 06:00] VITALS: BMI 36.6
[2024-07-31 07:08] VITALS: BP 146/89
[2024-07-31 07:10] LABS: % Basophils 0.5 % (0-2); % Eosinophils 1.6 % (0-6); % Immature Granulocytes 0.7 % (0-0.5); % Lymphocytes 8.3 % (20.5-51.1); % Monocytes 9.1 % (1.7-9.3); % Neutrophils 79.8 % (42.2-75.2); Absolute Basophils 0.1 10^3/uL (0-0.2); Absolute Eosinophils 0.2 10^3/uL (0-0.7); Absolute Immature Granulocytes 0.1 10^3/uL (0-0.05); Absolute Lymphocytes 1.2 10^3/uL (1.2-3.4); Absolute Monocytes 1.3 10^3/uL (0.1-0.6); Absolute Neutrophils 11.2 10^3/uL (1.4-6.5); Hematocrit 43.8 % (39.0-52.0); Hemoglobin 14.8 g/dL (13.0-18.0); Mean Corp Hgb Conc. 33.8 g/dL (33.0-37.0); Mean Corpuscular Hgb 30.4 pg (27.0-31.0); Mean Corpuscular Volume 89.9 fL (80.0-94.0); Mean Platelet Volume 9.3 fL (7.4-10.4); Nucleated Red Blood Cells % 0 % (-); Platelet Count 333 10^3/uL (130-400); Red Blood Cell Count 4.87 10^6/uL (4.70-6.10); Red Cell Dist. Width 12.3 % (11.5-14.5); White Blood Cell Count 14.1 10^3/uL (4.8-10.8)
[2024-07-31 07:16] LABS: Blood Urea Nitrogen 15 mg/dl (9-20); Calcium 9.1 mg/dl (8.4-10.2); Carbon Dioxide 23 mmol/L (22-30); Chloride 102 mmol/L (98-107); Estimated Creatinine Clearance 74 ml/min; Glucose 136 mg/dl (70-99); Potassium 4.9 mmol/L (3.5-5.1); Sodium 134 mmol/L (135-145); eGFR 57.79
--- NOTE | 2024-07-31 08:47 | W.PN.HOSP.TC ---
Today's Communication/Plan
-
IV fluid. Supportive care. Antibiotics and ID reeval.
Assessment / Plan
Assessment / Plan
Physical exam:
General: Well Developed, Well Nourished and No Apparent Distress
HEENT: Normocephalic, Atraumatic and Moist Mucous Membranes
Respiratory: Clear to Auscultation; Negative Wheezes, Rales or Rhonchi
Cardiac: Regular Rhythm and S1/S2
GI: Soft, Nontender and Nondistended
Musculoskeletal: No Clubbing, No Cyanosis and No Edema
Neuro: Awake, Alert and Oriented
Psych: Calm
A/P:
Headache photophobia myalgias and fevers:
Likely viral illness
CT head with contrast unremarkable
LP with mild leukocytosis with predominantly lymphocytes, meningitis panel negative.
Pending mumps serology
Pending autoimmune workup
Contaminant blood culture-CONS:
Follow-up blood cultures no growth
Continue antibiotics but likely will stop [id number] ID recommendation
EDDIE:
Likely contrast nephropathy and NSAIDs use
Continue IV fluid
Avoid nephrotoxic
Bladder scan
Monitor renal function
Constipation:
Start bowel regimen
DVT prophylaxis:
Lovenox SQ
CODE STATUS:
Full code
Total time spent on today's encounter was 52 minutes which included time spent in counseling the patient/family regarding diagnosis and treatment plan as listed above, goals of care, and symptom management. Case was discussed with nursing staff,
specialists, and care coordinators/case management. All labs and imaging personally reviewed by me. Remainder the time spent in detailed review of previous records, lab data, imaging, and other medical provider documentation.
Anticipated Discharge: 24 - 48 hours
Subjective/Interval History
-
Date of Service: July 31, 2024
Patient still complains of headache and photophobia. Generalized malaise. Swelling of the scrotum coming down
Objective Data
-
Labs:
Laboratory Results
07/31/24
06:09
WBC 14.1 H
Hgb 14.8
Hct 43.8
Plt Count 333 D
Sodium 134 L
Potassium 4.9
Chloride 102
Carbon Dioxide 23
BUN 15
Creatinine 1.5 H
Glucose 136 H
Calcium 9.1
Vital Signs:
Vital Signs
Temp Pulse Resp BP Pulse Ox
100.6 F H 87 17 146/89 95
07/31/24 07:08 07/31/24 07:08 07/31/24 07:08 07/31/24 07:08 07/31/24 07:08
I&O
07/30/24 07/31/24 08/01/24
06:59 06:59 06:59
Intake Total 2039
Output Total 1500 / 1500
Balance 540 / 540
[2024-07-31] MEDS: FIORICET 2 TAB PO (09:10)
--- NOTE | 2024-07-31 11:06 | CM ---
client service manager reviewed patient's chart and met with patient and patient lives with spouse in a 2 story home, patient is independent with adl's and ambulation, no dme, patient drives, home when stable no needs.
Pharmacy: [facility]
Plan; Home with spouse when stable, no needs.
[2024-07-31] MEDS: COLACE 100 MG PO ×2 (13:09→19:35)
[2024-07-31] MEDS: MIRALAX 17 GRAMS PO ×2 (13:09→19:35)
[2024-07-31 15:06] VITALS: BP 126/87
[2024-07-31] MEDS: DUPHALAC/CHRONULAC 20 GRAMS PO (15:12)
[2024-07-31] MEDS: FIORICET 1 TAB PO ×2 (15:15→21:17)
--- NOTE | 2024-07-31 17:02 | W.PN.ID1 ---
Date of Service
Date of Service: July 31, 2024
Today's Communication
Continue ceftriaxone for today
Assessment / Plan
Headache
Photophobia
Myalgias
Fever
Leukocytosis
EDDIE
Elevated ESR
Elevated CRP
PTSD
Low testosterone
Recommendations:
Patient appears slightly improved today. Improved light sensitivity/decreased photophobia is encouraging.
CHILD CARE SPECIALIST results reviewed. Pleocytosis noted, but lymphocyte predominance suggests a viral or aseptic etiology.
Positive blood cultures are noted, although not clear whether this is a contaminant (given GPC's out of only 1 bottle of 4), or real.
Repeat blood cultures are pending.
Continue with ceftriaxone for today.
Monitor white count and temperature curve.
If headaches persist, may consider Neurology consultation +/- MRI brain
����������������������������������������������������������
Chief Complaint
-: Fever and Leukocytosis
Subjective / Review of Systems
Patient seen and examined. Reports feeling mildly better today. Still with headache, although feels that temperatures are improved. Less light sensitivity.
Vital Signs / Physical Exam
Vital Signs
Vital Signs
Temp Pulse Resp BP Pulse Ox
98.0 F 85 17 126/87 98
07/31/24 15:06 07/31/24 15:06 07/31/24 15:06 07/31/24 15:06 07/31/24 15:06
Physical Exam
Constitutional: No Acute Distress, Comfortable and Non-toxic
Head: Normocephalic
Eyes: Sclera Anicteric
Cardiovascular: Regular Rate and S1/S2; Negative S3/S4
Pulmonary: Clear; Negative Wheezes or Rales
Gastrointestinal: Soft and Non Tender
Musculoskeletal: Negative Joint Effusion
Skin: Warm and Dry; Negative Rash or Jaundice
Neurological: Awake and Alert; Negative Meningeal Signs (No nuchal rigidity)
Psychological: Calm
Objective Data
Lab Data
Lab Results
07/31/24 06:09
07/31/24 06:09
ESR 75 mm/hour (0-20) H 07/30/24 00:23
Estimated Creat Clear 74 ml/min 07/31/24 06:09
Lactic Acid Cancelled 07/30/24 04:30
Total Bilirubin 0.8 mg/dl (0.2-1.3) 07/30/24 00:23
AST 32 U/L (17-59) 07/30/24 00:23
ALT 39 U/L (0-50) 07/30/24 00:23
Alkaline Phosphatase 156 U/L (38-126) H 07/30/24 00:23
C-Reactive Protein 136.10 mg/L (0.0-10.00) H 07/31/24 06:09
Most recent labs reviewed.
Micro Results:
07/30/24 15:20 CSF Culture - Preliminary
Csf No Growth After 18-24 Hours
Gram Stain - Preliminary
07/30/24 00:27 Blood Culture - Preliminary
Blood/Venous No Growth in 24 hours- Final report to follow
07/30/24 00:23 Blood Culture - Preliminary
Blood/Venous No Growth in 24 hours- Final report to follow
07/30/24 15:20 Meningitis/Encephalitis Panel (PCR) - Final
Csf
Imaging:
07/29/2024 Ultrasound scrotum: No evidence of testicular torsion, orchitis/epididymitis or testicular mass. There is mild scrotal skin edema of unknown etiology. Please see full dictation for additional detail.
07/28/2024 CT abdomen/pelvis with IV contrast: There is mild perinephric stranding on each side. 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 Appendix is of normal appearance. Please see full dictation for
additional detail.
07/23/2024 CT chest (PE study): No evidence of pulmonary embolism. No significant acute abnormality identified in the chest. There is mild coronary artery calcifications. Please see full dictation for additional detail.
Care Review
Plan reviewed with: Physician (Hospitalist)
[2024-07-31] MEDS: LOVENOX 40 MG SC (17:37)
[2024-07-31 23:10] VITALS: BP 141/82
[2024-07-31 23:54] LABS: Mumps Virus IgM 1.59 IV (<=0.79)
--- NOTE | 2024-08-01 03:09 | W.PN.UPDATE ---
Update Note
Progress Note Update
A positive IgM test for mumps, will continue supportive care, hydration, and isolation.
[2024-08-01] MEDS: ROCEPHIN 2000 MG IV (05:00)
[2024-08-01] MEDS: FLUSH (NSS) 1 FLUSH IV ×2 (05:00→05:04)
[2024-08-01] MEDS: STERILE WATER FOR INJECTION 20 ML IV (05:01)
[2024-08-01] MEDS: LR 1000 IV (05:03)
[2024-08-01] MEDS: TYLENOL 650 MG PO (05:36)
[2024-08-01 06:28] LABS: % Basophils 0.5 % (0-2); % Eosinophils 1.7 % (0-6); % Immature Granulocytes 0.4 % (0-0.5); % Lymphocytes 8.7 % (20.5-51.1); % Monocytes 7.8 % (1.7-9.3); % Neutrophils 80.9 % (42.2-75.2); Absolute Basophils 0.1 10^3/uL (0-0.2); Absolute Eosinophils 0.2 10^3/uL (0-0.7); Absolute Immature Granulocytes 0.1 10^3/uL (0-0.05); Absolute Lymphocytes 1.2 10^3/uL (1.2-3.4); Absolute Monocytes 1.1 10^3/uL (0.1-0.6); Absolute Neutrophils 11.1 10^3/uL (1.4-6.5); Hematocrit 41.3 % (39.0-52.0); Hemoglobin 14.1 g/dL (13.0-18.0); Mean Corp Hgb Conc. 34.1 g/dL (33.0-37.0); Mean Corpuscular Hgb 30.1 pg (27.0-31.0); Mean Corpuscular Volume 88.1 fL (80.0-94.0); Nucleated Red Blood Cells % 0 % (-); Platelet Count 321 10^3/uL (130-400); Red Blood Cell Count 4.69 10^6/uL (4.70-6.10); Red Cell Dist. Width 12.3 % (11.5-14.5); White Blood Cell Count 13.8 10^3/uL (4.8-10.8)
--- NOTE | 2024-08-01 06:41 | PTCARENOTE ---
HIGH REACH OPERATOR notified @0240 about lab notifying this nurse that patient is positive for mumps and IgG pending. Pt continues with headache, poor appetite, c/o scrotal pain, fioricet given as ordered, Plan of care continues.
[2024-08-01 07:01] LABS: Blood Urea Nitrogen 18 mg/dl (9-20); Calcium 9.1 mg/dl (8.4-10.2); Carbon Dioxide 23 mmol/L (22-30); Chloride 98 mmol/L (98-107); Estimated Creatinine Clearance 74 ml/min; Glucose 135 mg/dl (70-99); Potassium 4.6 mmol/L (3.5-5.1); Sodium 135 mmol/L (135-145); eGFR 57.79
[2024-08-01 07:29] VITALS: BP 129/83
[2024-08-01] MEDS: MIRALAX 17 GRAMS PO (08:38)
[2024-08-01] MEDS: COLACE 100 MG PO (08:38)
[2024-08-01] MEDS: DUPHALAC/CHRONULAC 20 GRAMS PO (08:38)
--- NOTE | 2024-08-01 08:41 | W.PN.HOSP.TC ---
Addendum entered and electronically signed by Hubert Guerra MD 08/01/24 12:54:
I get clearance from nephrology to get him discharge. Will work on his discharge for today.
Original Note:
Today's Communication/Plan
-
Supportive care. Monitor renal function
Assessment / Plan
Assessment / Plan
Physical exam:
General: Well Developed, Well Nourished and No Apparent Distress
HEENT: Normocephalic, Atraumatic and Moist Mucous Membranes
Respiratory: Clear to Auscultation; Negative Wheezes, Rales or Rhonchi
Cardiac: Regular Rhythm and S1/S2
GI: Soft, Nontender and Nondistended
Musculoskeletal: No Clubbing, No Cyanosis and No Edema
Neuro: Awake, Alert and Oriented
Psych: Calm
A/P:
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
Mumps IgM positive
PCR test will be send out
CT head with contrast unremarkable
LP with mild leukocytosis with predominantly lymphocytes, meningitis panel negative.
Pending autoimmune workup but less likely given that we have infectious explanation of his symptoms.
Discussed with at bedside
Contaminant blood culture-CONS:
Follow-up blood cultures no growth
Discontinue IV Rocephin
Appreciate ID consult and follow-up
Mumps orchitis:
Supportive care
EDDIE:
Likely contrast nephropathy and NSAIDs use
Stop IV fluids
Nephrology eval
Avoid nephrotoxic
Bladder scan
Monitor renal function
Constipation:
Continue bowel regimen
DVT prophylaxis:
Lovenox SQ
CODE STATUS:
Full code
Anticipated Discharge: Within 24 hours
Subjective/Interval History
-
Date of Service: August 01, 2024
Patient feels better today. Patient is moving his bowels. Afebrile
Objective Data
-
Labs:
Laboratory Results
08/01/24
05:58
WBC 13.8 H
Hgb 14.1
Hct 41.3
Plt Count 321
Sodium 135
Potassium 4.6
Chloride 98
Carbon Dioxide 23
BUN 18
Creatinine 1.5 H
Glucose 135 H
Calcium 9.1
Vital Signs:
Vital Signs
Temp Pulse Resp BP Pulse Ox
98.6 F 71 17 129/83 98
08/01/24 07:29 08/01/24 07:29 08/01/24 07:29 08/01/24 07:29 08/01/24 07:29
I&O
07/31/24 08/01/24 08/02/24
06:59 06:59 06:59
Intake Total 5040 / 5040
Output Total 1999 / 1999
Balance 3040 / 3040
--- NOTE | 2024-08-01 09:52 | W.PN.ID1 ---
Date of Service
Date of Service: August 01, 2024
Today's Communication
Discontinue further ceftriaxone.
Assessment / Plan
Headache
Photophobia
Myalgias
Fever
Leukocytosis
EDDIE
Elevated ESR
Elevated CRP
PTSD
Low testosterone
Recommendations:
Mumps IgM has returned positive. Although no parotid swelling, CSF findings, along with testicular discomfort are suggestive of diagnosis.
Discontinue further Rocephin.
Will order mumps PCR from buccal mucosa.
Blood cultures only with coag negative staph; contaminant
Continue with supportive care.
����������������������������������������������������������
Chief Complaint
-: Fever and Leukocytosis
Subjective / Review of Systems
Patient seen and examined. Reports feeling somewhat improved. Marked improvement in photophobia; now no longer needing glasses.
Vital Signs / Physical Exam
Vital Signs
Vital Signs
Temp Pulse Resp BP Pulse Ox
98.6 F 71 17 129/83 98
08/01/24 07:29 08/01/24 07:29 08/01/24 07:29 08/01/24 07:29 08/01/24 07:29
Physical Exam
Constitutional: No Acute Distress, Comfortable and Non-toxic
Head: Normocephalic and Other (No parotid swelling or tenderness.)
Eyes: Sclera Anicteric
Cardiovascular: Regular Rate and S1/S2; Negative S3/S4
Pulmonary: Clear; Negative Wheezes or Rales
Gastrointestinal: Soft and Non Tender
Musculoskeletal: Negative Joint Effusion
Skin: Warm and Dry; Negative Rash or Jaundice
Neurological: Awake and Alert; Negative Meningeal Signs (No nuchal rigidity)
Psychological: Calm
Objective Data
Lab Data
Lab Results
08/01/24 05:58
08/01/24 05:58
ESR 75 mm/hour (0-20) H 07/30/24 00:23
Estimated Creat Clear 74 ml/min 08/01/24 05:58
Lactic Acid Cancelled 07/30/24 04:30
Total Bilirubin 0.8 mg/dl (0.2-1.3) 07/30/24 00:23
AST 32 U/L (17-59) 07/30/24 00:23
ALT 39 U/L (0-50) 07/30/24 00:23
Alkaline Phosphatase 156 U/L (38-126) H 07/30/24 00:23
C-Reactive Protein 136.10 mg/L (0.0-10.00) H 07/31/24 06:09
Most recent labs reviewed.
Micro Results:
07/30/24 00:27 Blood Culture - Preliminary
Blood/Venous No Growth in 48 hours- Final report to follow
07/30/24 00:23 Blood Culture - Preliminary
Blood/Venous No Growth in 48 hours- Final report to follow
07/30/24 15:20 CSF Culture - Preliminary
Csf No Growth After 18-24 Hours
Gram Stain - Preliminary
07/30/24 15:20 Meningitis/Encephalitis Panel (PCR) - Final
Csf
Laboratory Tests
07/30/24
05:22
Mumps Virus IgM Ab 1.59 H
Imaging:
07/29/2024 Ultrasound scrotum: No evidence of testicular torsion, orchitis/epididymitis or testicular mass. There is mild scrotal skin edema of unknown etiology. Please see full dictation for additional detail.
07/28/2024 CT abdomen/pelvis with IV contrast: There is mild perinephric stranding on each side. 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 Appendix is of normal appearance. Please see full dictation for
additional detail.
07/23/2024 CT chest (PE study): No evidence of pulmonary embolism. No significant acute abnormality identified in the chest. There is mild coronary artery calcifications. Please see full dictation for additional detail.
Care Review
Plan reviewed with: Nurse, Physician (Hospitalist) and Other (Infection Prevention)
.

Total time spent today was 55 minutes, which includes preparation for the visit, gathering pertinent data, patient interview and examination, reviewing pertinent studies including laboratory evaluations, microbiology, radiology, hospital records,
specialist consultation, along with counseling and coordination of care.
[2024-08-01 11:36] LABS: Mumps Virus IgG Positive
[2024-08-01] MEDS: FIORICET 1 TAB PO (11:53)
--- NOTE | 2024-08-01 12:54 | W.DCSUMMARY ---
Discharge Summary
Discharge Data
Date of Admission: 07/30/24
Date of Discharge: 08/01/24
-
Pending Results: No
Hospital Course
Patient 48-year-old male with no significant medical history came into the hospital with photophobia, headaches, generalized malaise, myalgias, swelling of the scrotum. ID was consulted. He was placed on broad-spectrum antibiotics. He had an LP
that showed leukocytosis predominantly with lymphocytes. He had IgM positive mumps and PCR mumps was sent out pending results. He had a blood culture that was positive there was a contaminant and follow-up blood cultures were no growth. He also
had EDDIE. He was given IV fluids and instructed to avoid NSAIDs and nephrology evaluated the patient and cleared him for discharge and follow-up renal function as outpatient. ID also cleared him for discharge today. He will be discharged in stable
condition today.
Discharge duration: 34 minutes
Discharge Plan
-
Patient Disposition: Home (Routine Discharge)
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
Diet: Regular
Activity: As tolerated
Blood Work: BMP as an outpatient by PCP and or seismic prospecting observer helper
Referrals:
Primary care, provider [Other] (See less than 1 week)
Magdy Carlos MD [Active] - in one to two weeks
Prescriptions:
New
[id number] 50-325-40 mg Tablet
1 tab PO Q6HPRN PRN (Reason: headache) 7 Days Qty: 10 0RF
Continued
Testosterone Micronized(Powder
1 applic topical BID
Patient Comments:
07/30/24: per PDMP patient was dispensed the 1 kg powder on 10/05/2023. quantity of 21.6g
venlafaxine 75 mg Capsule,Extended Release 24hr
75 mg PO HS
acetaminophen 500 mg Tablet
1,000 mg PO QID PRN (Reason: mild pain)
Discharge Orders:
Discharge Patient (As Directed); Ordered 08/01/24
Ordered By: Hubert Guerra
Discharge Date and Time
Discharge Date/Time: 08/01/24 15:26
Print Language: [id number]
--- NOTE | 2024-08-01 13:18 | W.CON.NEPH ---
Consultation
-
Date/Time Consultation Requested: 08/01/2024 11 AM
Date/Time Consultation Performed: 08/01/2024 12 PM
Requesting Provider: Dr. Guerra
Performing Provider: Dr. Carlos
Reason for Consultation: EDDIE
Medical History
-
Chief Complaint: Fever
History of Present Illness:
This is a 48-year-old gentleman who has limited medical history with developed generalized bodyaches and chest discomfort. This happened about 2 weeks ago. He then came to the emergency room on July [address] of the chest with IV contrast.
Evaluation at that time was unrevealing he was discharged to home. It was recommended that he maintain hydration and use Motrin as needed. He had been taking Motrin at home up to 9 pills a day for 5-6 days time. He stopped this on Tuesday when he
came back to the emergency room for persistent symptoms at that point he had a CT of the abdomen and pelvis with IV contrast. He was also found to have low-grade leukocytosis with possible perinephric stranding. He was admitted at that time. His
creatinine was noted to be elevated at 1.4-1.5. We were asked to assist with management of the acute kidney injury.
Workup during his hospitalization ultimately revealed mumps.
Past Medical History
PTSD, low testosterone
Social History
Tobacco: Former Smoker
Alcohol: None
Family History
Family History: Not Pertinent
Allergies / Home Medications
Allergy/AdvReac Type Severity Reaction Status Date / Time
amoxicillin Allergy Shortness Verified 07/29/24 23:11
of Breath
Penicillins Allergy Unknown Verified 07/29/24 23:11
�Medication �Instructions �Recorded �Confirmed �Type
Testosterone Micronized(Powder 1 applic topical BID Hormonal Agent 07/30/24 07/30/24 History
acetaminophen 500 mg tablet 1,000 mg PO QID PRN mild pain 07/30/24 07/30/24 History
venlafaxine 75 mg capsule,extended 75 mg PO HS depression/anxiety 07/30/24 07/30/24 History
release 24 hr
oabqtaokee-zdqatpxsflskl-pqtebdik 1 tab PO Q6HPRN PRN headache 7 08/01/24 Rx
50 mg-325 mg-40 mg tablet days #10 tabs
Review of Systems
-
Malaise, generalized bodyaches, testicular pain
All other systems: Negative unless noted
Physical Exam
Vital Signs
Vital Signs
Temp Pulse Resp BP Pulse Ox
98.6 F 71 17 129/83 98
08/01/24 07:29 08/01/24 07:29 08/01/24 07:29 08/01/24 07:29 08/01/24 07:29
Lab Results
WBC 13.8 10^3/uL (4.8-10.8) H 08/01/24 05:58
RBC 4.69 10^6/uL (4.70-6.10) L 08/01/24 05:58
Hgb 14.1 g/dL (13.0-18.0) 08/01/24 05:58
Hct 41.3 % (39.0-52.0) 08/01/24 05:58
Plt Count 321 10^3/uL (130-400) 08/01/24 05:58
Sodium 135 mmol/L (135-145) 08/01/24 05:58
Potassium 4.6 mmol/L (3.5-5.1) 08/01/24 05:58
Chloride 98 mmol/L (98-107) 08/01/24 05:58
Carbon Dioxide 23 mmol/L (22-30) 08/01/24 05:58
BUN 18 mg/dl (9-20) 08/01/24 05:58
Creatinine 1.5 mg/dL (0.7-1.3) H 08/01/24 05:58
eGFR 57.79 08/01/24 05:58
Glucose 135 mg/dl (70-99) H 08/01/24 05:58
Calcium 9.1 mg/dl (8.4-10.2) 08/01/24 05:58
Albumin 3.6 g/dl (3.5-5.0) 07/30/24 00:23
Laboratory Tests
07/23/24 07/28/24
09:05 19:00
Creatinine 1.[address] abdomen pelvis on 07/28/2024 with IV contrast
IMPRESSION:
1. Mild perinephric stranding on each side. Please correlate with urinalysis to exclude urinary tract infection.
2. Malrotation of each kidney, without hydronephrosis or nephrolithiasis on either side.
3. The appendix is of normal appearance.
CT chest PE protocol on 07/23/2024
IMPRESSION:
1. No evidence of pulmonary embolism.
2. No significant acute abnormality identified in the chest, as described above.
3. Mild coronary artery calcifications.
Physical Exam
Patient is awake alert oriented and in no distress. Mood and affect were pleasant, insight and judgment were good. Pupils are equal round and reactive to light, extraocular movements are intact, sclera were anicteric. Hearing was normal, ears and
nose are intact. Oropharynx was clear. Neck was supple with trachea midline and no thyromegaly. Heart was regular rate and rhythm without rubs. Lower extremities without edema. Lungs were clear to auscultation bilaterally and with normal
excursion. Abdomen was soft, nontender, with normal active bowel sounds, and no hepatosplenomegaly. Skin was without rash and with normal turgor.
Data Reviewed
-
CT Scan: Report Reviewed by me
Medical Tests (Nuc Med, Echo etc): Image Personally Visualized and interpreted (Chest x-ray on 07/23/2024 by my reading shows mild increase in interstitial markings)
Labs: Labs Reviewed by me
Old Records: Reviewed
Assessment/Plan
-
Assessment
EDDIE
Mumps
Orchitis
Plan
EDDIE likely on basis of contrast exposure with NSAIDs both of which have been discontinued.
He appears to be euvolemic and blood pressures are stable
Supportive management are only recommendations at this time
As his creatinine is stable this could be followed as an outpatient. He will need repeat BMP on Tuesday
He will also need a primary care physician
[2024-08-01 14:10] VITALS: BP 140/86
[2024-08-01 14:46] LABS: C.neoformans Antigen Negative (Negative)
[2024-08-01 15:58] LABS: Urine Sodium 51 mmol/L (30-90)
[2024-08-01 21:11] LABS: ANA, IgG Reflex to HEp-2 None Detected (None Detected)
[2024-08-02 12:19] LABS: Rheumatoid Agglutinin Less Than 10 IU (<10 IU)
== END 2024-08-01 15:26 | disposition home or self-care (01) | DRG 98 ==
LOC: 3 WEST ACU 04:03
PROVIDERS: Radiology Vascular & Interventional Radiology; ADMITTING PHYSICIAN Hospitalist; ATTENDING PHYSICIAN Hospitalist; CONSULT PHYSICIAN Specialist; EMERGENCY PHYSICIAN Emergency Medicine; OTHER PHYSICIAN Internal Medicine Infectious Disease
PROC: 009U3ZX Drainage of Spinal Canal, Percutaneous Approach, Diagnostic (ICD-10-PCS; 2024-07-30)
DX: B26.2 Mumps encephalitis (principal); N17.9 Acute kidney failure, unspecified; N45.2 Orchitis; E29.1 Testicular hypofunction; F43.10 Post-traumatic stress disorder, unspecified; F17.290 Nicotine dependence, other tobacco product, uncomplicated; Z88.0 Allergy status to penicillin
CPT/HCPCS: 62328; 70470; 76870; 80048; 80053; 81003; 81015; 82550; 82565; 82570; 82945; 83605; 84157; 84300; 85025; 85027; 85652; 86038; 86140; 86160; 86430; 86735; 87015; 87040; 87070; 87205; 87327; 87483; 89051; 93976; 96361; 96374; 99285; G0103; Q9967